=== PATIENT | female | born 1955 | race Caucasian/White ===

== ENCOUNTER 2016-12-30 05:07 | Emergency (ER) | payer OTHER | END 2016-12-30 07:24 | disposition home or self-care (01) | DX: R00.2 Palpitations (principal) ==

== ENCOUNTER 2017-02-11 09:46 | Outpatient (CLI) | payer OTHER | END 2017-02-11 09:47 | disposition home or self-care (01) | DX: R07.89 Other chest pain (principal); R00.2 Palpitations ==

== ENCOUNTER 2018-05-05 07:55 | Outpatient (CLI) | payer OTHER ==
--- NOTE | 2018-05-05 12:03 | MRI Report ---
Procedure Date: 05/05/2018 Accession Number: [id number] / [id number] Procedure: MRI - Elbow RT W/O CPT Code: FULL RESULT: EXAM: RIGHT ELBOW MRI WITHOUT CONTRAST EXAM DATE: 05/05/2018 09:04 AM. CLINICAL HISTORY: Medial epicondylitis. COMPARISON: None. TECHNIQUE: Multiplanar, multisequence T1-weighted and fluid-sensitive sequences of the elbow without contrast. Other: None. FINDINGS: Bones and articular surfaces: No significant elbow joint effusion. Patient motion artifact. Mild areas of cartilage thinning and fissuring within the elbow joint. No loose body identified. No evidence of acute fracture or stress reaction. Musculotendinous structures: Prominent bone and soft tissue edema associated with the common flexor pronator origin. 10 x 4 x 7 mm focus of fluid signal within the substance of the common extensor origin consistent with partial tear. The biceps, brachialis and triceps insertions appear intact. Ligaments: The ulnar collateral, radial collateral and lateral ulnar collateral ligaments appear intact. IMPRESSION: 1. Moderate to severe tendinosis and possible strain at the common flexor pronator origin with pronounced reactive marrow edema at the medial epicondyle. 2. High-grade partial tear at the common extensor origin. [facility] MUSCULOSKELETAL RADIOLOGY SECTION
== END 2018-05-05 07:56 | disposition home or self-care (01) ==
LOC: DI 07:55
PROVIDERS: ATTEND Orthopaedic Surgery
DX: M67.921 Unspecified disorder of synovium and tendon, right upper arm (principal); S56.212A Strain of other flexor muscle, fascia and tendon at forearm level, left arm, initial encounter

== ENCOUNTER 2021-01-28 09:50 | Outpatient (CLI) | payer MEDICARE, OTHER ==
--- NOTE | 2021-01-28 15:18 | DEXA Report ---
PROCEDURE: Dexa Spine and/or Hip INDICATIONS: OSTEOPENIA TECHNIQUE: Dual energy x-ray absorptiometry (DXA) was performed on a [employer] System. Regions measur ed are the AP Spine, femoral neck, and if needed forearm. COMPARISON: None. FINDINGS: Lumbar Spine: Bone Mineral Density 0.942 g/cm/cm,T score -2.0, osteopenia Left Hip: Bone Mineral Density 0.877 g/cm/cm,T score -1.0, normal Left Femoral Neck: Bone Mineral Density 0.769 g/cm/cm, T score 1.9, osteopenia (T score greater or equal to -1.0: NORMAL) (T score from -1.1 to -2.4: OSTEOPENIA) (T score less than or equal to -2.5 to: OSTEOPOROSIS) Impression: 1. Osteopenia elevates the patient's 10 year fracture risk. Patients with diagnosis of osteoporosis or osteopenia should have regular bone mineral density assess ment. For those eligible for Medicare, routine testing is allowed once every 2 years. Testing frequ ency can be increased for patients who have rapidly progressing disease or for those who are receivin g medical therapy to restore bone mass. Reviewed by: Prema Adkins MD on 01/28/2021 2:17 PM [facility] Approved by: Prema Adkins MD on 01/28/2021 2:17 PM [facility] Station ID: [id number]
== END 2021-01-28 09:51 | disposition home or self-care (01) ==
LOC: DI 09:50
PROVIDERS: ATTEND Internal Medicine
DX: M85.89 Other specified disorders of bone density and structure, multiple sites (principal)

== ENCOUNTER 2021-02-04 08:19 | Outpatient (CLI) | payer MEDICARE, OTHER ==
--- NOTE | 2021-02-05 13:22 | Mammography Report ---
BILATERAL DIGITAL SCREENING MAMMOGRAM 3D/2D: 02/04/2021 CLINICAL: Routine screening. Comparison is made to exams dated: 01/13/2019 mammogram and 08/16/2014 mammogram - [facility]. The tissue of both breasts is heterogeneously dense. This may lower the sensitivity of mamm ography. No significant masses, calcifications, or other findings are seen in either breast. There has been no significant interval change. IMPRESSION: NEGATIVE There is no mammographic evidence of malignancy. A 1 year screening mammogram is recommended. This exam was interpreted at Station ID: [id number]. NOTE: For mammograms, a report in lay terms will be sent to the patient. Approximately 15% of breast malignancies will not be visualized mammographically. In the management of a palpable breast mass, a negative mammogram must not discourage biopsy of a clinically suspicious lesion. Electronically Signed By: Froilan White M.D. ar/penrad:02/04/2021 09:34:00 ACR BI-RADS Category 1: Negative [id number] PARENCHYMAL PATTERN: (D) - The breast(s) demonstrate(s) heterogeneously dense fibroglandular anne-marie coy. BI-RADS CATEGORY: (1) - 1 RECOMMENDATION: (ANNUAL) - Recommend routine annual screening mammography. [id number] 1 year screening LATERALITY: (B)
== END 2021-02-04 08:20 | disposition home or self-care (01) ==
LOC: DI.N 08:19
PROVIDERS: ATTEND Internal Medicine
DX: Z12.31 Encounter for screening mammogram for malignant neoplasm of breast (principal)

== ENCOUNTER 2022-03-11 07:25 | Day surgery (SDC) | payer MEDICARE, OTHER ==
[2022-03-11] MEDS ORDERED: LACTATED RINGERS 1,000 ML IV ONE (07:56)
--- NOTE | 2022-03-11 08:26 | ANESTHESIA ---
Pre-Anesthesia VS, & Labs - Diagnosis positive cologuard - Procedure colonoscopy Vital Signs: Temp Pulse Resp BP Pulse Ox 36.0 C L 70 16 140/84 H 100 03/11/22 07:57 03/11/22 07:57 03/11/22 07:57 03/11/22 07:57 03/11/22 07:57 Height: 5 ft 3 in Weight (kg): 55.5 kg Body Mass Index: 21.7 BMI Classification: Healthy weight - NPO Other (last prep 5:15) - Is Patient ?: No Home Medications and Allergies Celecoxib [CeleBREX] 100 mg PO .FREQ PRN 12/30/16 Allergies/Adverse Reactions: Allergies Allergy/AdvReac Type Severity Reaction Status Date / Time hydromorphone [From Dilaudid] AdvReac Nausea Verified 03/11/22 08:15 Anes History & Medical History - Anesthetic History Anesthesia Complications: reports: No previous complications - Medical History Cardiovascular: reports: Other Pulmonary: reports: Asthma Musculoskeletal: reports: Osteopenia, Chronic back pain, Other Skin: reports: Eczema Smoking Status: Never smoker History of Cancer?: No - Surgical History Gynecologic: reports: section Orthopedic: reports: Other (boone's neuroma) Exam General: Alert Dental: WNL Mouth Opening: Greater than 4 Fingerbreadths Neck Mobility: Limited Mallampati classification: II Thyromental Distance: greater than 6 cm Respiratory: Lungs clear Cardiovascular: Regular rate Plan Anesthesia Type: Total IV Consent for Procedure(s) Verified and Reviewed: Yes Code Status: Attempt Resuscitation ASA classification: 2-Mild systemic disease Is this case an emergency?: No
[2022-03-11] MEDS ORDERED: PROPOFOL 500 MG/50 ML 500 MG/50 ML VIAL ONE (09:09)
[2022-03-11] MEDS ORDERED: LACTATED RINGERS 400 ML IV ONE (09:19)
[2022-03-11 09:34] VITALS: BP 122/78
--- NOTE | 2022-03-11 10:16 | ANESTHESIA POST OP EVALUATION ---
Anesthesia Post Eval - Post Anesthesia Eval Vitals: Last Vital Signs Temp 36.0 C L 03/11/22 09:32 Pulse 63 03/11/22 09:32 Resp 16 03/11/22 09:32 BP 122/78 03/11/22 09:32 Pulse Ox 100 03/11/22 09:32 CV Function Including HR & BP: Stable Pain Control: Satisfactory Nausea & Vomiting: Negative Mental Status: Baseline Respiratory Status: Airway Patent Hydration Status: Satisfactory Anesthesia Complications: None
== END 2022-03-11 07:26 | disposition home or self-care (01) ==
LOC: SDS 07:25
PROVIDERS: ATTEND Surgery
PROC: 0DBN8ZZ Excision of Sigmoid Colon, Via Natural or Artificial Opening Endoscopic (ICD-10-PCS; 2022-03-11)
PROC: 0DBP8ZZ Excision of Rectum, Via Natural or Artificial Opening Endoscopic (ICD-10-PCS; principal; 2022-03-11 08:30)
DX: R19.5 Other fecal abnormalities (principal); D12.5 Benign neoplasm of sigmoid colon; K62.1 Rectal polyp; K57.30 Diverticulosis of large intestine without perforation or abscess without bleeding; K64.8 Other hemorrhoids; J45.909 Unspecified asthma, uncomplicated
CPT/HCPCS: 45380; J7120

== ENCOUNTER 2022-09-25 08:00 | Outpatient (CLI) | payer MEDICARE, OTHER ==
[2022-09-25 17:16] LABS: RHEUMATOID FACTOR NEGATIVE (Negative)
[2022-09-26 19:07] LABS: SJOGREN'S ANTI-SS-A <0.2 AI (0.0-0.9); SJOGREN'S ANTI-SS-B <0.2 AI (0.0-0.9)
[2022-09-28 21:07] LABS: CYCLIC CITRULLINATED PEP IGG/A 2 units (0-19)
== END 2022-09-25 23:59 | disposition home or self-care (01) ==
LOC: LAB.R 08:00
PROVIDERS: ATTEND Internal Medicine
DX: M25.50 Pain in unspecified joint (principal); H04.123 Dry eye syndrome of bilateral lacrimal glands; K11.7 Disturbances of salivary secretion; M25.552 Pain in left hip
CPT/HCPCS: 81599; 83695; 84550; 86200; 86235; 86430

== ENCOUNTER 2022-09-25 10:48 | Outpatient (CLI) | payer MEDICARE, OTHER ==
--- NOTE | 2022-09-25 17:36 | XRAY Report ---
PROCEDURE: Hip w/Pelvis 2-3V LT INDICATIONS: LEFT HIP PAIN TECHNIQUE: AP pelvis with lateral view(s) of the left hip(s). COMPARISON: None. FINDINGS: Bones: No fractures or dislocations. Symmetric appearing mild bilateral hip joint osteophytic change s are seen. No evidence of avascular necrosis of femoral head. Pelvic ring appears intact. No suspi cious bony lesions. Soft tissues: The visualized bowel gas pattern is normal. No suspicious soft tissue calcifications. IMPRESSION: Symmetric appearing mild bilateral hip joint osteoarthritis. No hip fracture or dislocati on. No evidence of avascular necrosis. Reviewed by: Ryan Sweet MD on 09/25/2022 5:35 PM PST Approved by: Ryan Sweet MD on 09/25/2022 5:35 PM PST Station ID: [id number]
== END 2022-09-25 10:49 | disposition home or self-care (01) ==
LOC: DI 10:48
PROVIDERS: ATTEND Internal Medicine
DX: M16.0 Bilateral primary osteoarthritis of hip (principal)

== ENCOUNTER 2023-02-11 07:27 | Outpatient (CLI) | payer MEDICARE, OTHER ==
--- NOTE | 2023-02-11 14:40 | Ultrasound Report ---
PROCEDURE: Abdomen Limited INDICATIONS: ELEVATED LIVER ENZYMES TECHNIQUE: Real-time focused scanning was performed of the abdomen, with image documentation. COMPARISONS: None. FINDINGS: Liver: Liver is normal in size and increased in echotexture. Gallbladder: No stones. Wall thickness measures 1.3 mm. Biliary ducts: Intrahepatic bile ducts are non-dilated. Extrahepatic bile duct caliber measures 3.1 mm. Normal is 6-7 mm or less in diameter, or 10 mm or less post-cholecystectomy. Pancreas: Visualized portions of the pancreas are sonographically normal. Right kidney: Normal in size and echotexture. Right kidney measures 11.5 cm long. No hydronephrosis or nephrolithiasis. No solid masses. No complex renal cystic lesions which require follow-up. Aorta: Visualized aorta is normal in caliber at less than 3 cm. IVC: Intrahepatic inferior vena cava is patent. Miscellaneous: No free abdominal fluid. IMPRESSION: Hepatic steatosis. Reviewed by: Magali Feliciano MD on 02/11/2023 2:38 PM PDT Approved by: Magali Feliciano MD on 02/11/2023 2:38 PM PDT Station ID: [id number]
== END 2023-02-11 07:28 | disposition home or self-care (01) ==
LOC: DI 07:27
PROVIDERS: ATTEND Internal Medicine
DX: K76.0 Fatty (change of) liver, not elsewhere classified (principal)

== ENCOUNTER 2023-07-08 17:09 | Emergency (ER) | payer MEDICARE, OTHER ==
[2023-07-08 17:29] LABS: BILIRUBIN,URINE NEGATIVE (NEGATIVE); GLUCOSE, URINE (UA) NEGATIVE (NEGATIVE); KETONES,URINE (UA) NEGATIVE (NEGATIVE); LEUKOCYTE ESTERASE, URINE NEGATIVE (NEGATIVE); NITRITE,URINE NEGATIVE (NEGATIVE); OCCULT BLOOD,URINE NEGATIVE (NEGATIVE); PROTEIN,URINE NEGATIVE (NEGATIVE); UROBILINOGEN,URINE 0.2 (NORMAL) E.U./dL (NORMAL)
[2023-07-08 17:51] LABS: CLARITY,URINE CLEAR (CLEAR)
[2023-07-08 17:54] LABS: BASOPHILS % (AUTO) 0.4 %; EOSINOPHILS % (AUTO) 0.4 %; HCT - HEMATOCRIT 37.7 % (37.0-47.0); LYMPHOCYTES # (AUTO) 1.8 10^3/uL (1.5-3.5); LYMPHOCYTES % (AUTO) 18.6 %; MEAN CORPUSCULAR HEMOGLOBIN 33.1 pg (27.0-31.0); MEAN CORPUSCULAR HGB CONC 34.5 g/dL (32.0-36.0); MEAN CORPUSCULAR VOLUME 95.9 fL (81.0-99.0); MEAN PLATELET VOLUME 11.7 fL (7.9-10.8); MONOCYTES # (AUTO) 0.9 10^3/uL (0.0-1.0); MONOCYTES % (AUTO) 8.7 %; NEUTROPHILS % (AUTO) 71.6 %; PLT - PLATELET COUNT 147 10^3/uL (130-450); RED BLOOD COUNT 3.93 10^6/uL (4.20-5.40); RED CELL DISTRIBUTION WIDTH 11.5 % (12.0-15.0); WHITE BLOOD COUNT 9.8 x10^3/uL (4.8-10.8)
--- OUTSIDE RECORDS SUMMARY | 2023-07-08 18:05 | EXTERNAL MEDICAL SUMMARY RPT | Continuity of Care Document ---
Author Name Unknown Address [address] [place] [address] Phone Organization [facility] Address [address] [phone] Phone Problems date description facility 2023-05-31 10:06 Other abnormal and i nconclusive findings on diagnostic [facility] Results/Labs test date facility value unit notes
[2023-07-08 18:08] LABS: ALBUMIN 4.5 g/dL (3.2-5.5); ALBUMIN/GLOBULIN RATIO 1.8 (1.0-2.2); BILIRUBIN,TOTAL 0.7 mg/dL (0.2-1.0); CALCIUM 9.7 mg/dL (8.5-10.3); CREATININE 0.7 mg/dL (0.6-1.3); POTASSIUM 3.8 mmol/L (3.5-4.5)
--- NOTE | 2023-07-08 18:20 | ED Physician Documentation ---
PD HPI ABD PAIN - Stated complaint Stated Complaint: LLQ PX - Chief complaint Chief Complaint: Abd Pain - History obtained from History obtained from: Patient - Additional information Additional information: 68-year-old woman with history of recurrent diverticulitis has had pain in the left lower quadrant since Wednesday. She started Augmentin that day with a clear liquid diet got worse yesterday after advancing her diet. There is no fevers or chills. She is having some rectal spasms with it. Her is a surgeon and examined her and felt like she had a mass in the left lower quadrant. PD PAST MEDICAL HISTORY - Past Medical History Past Medical History: Yes Cardiovascular: Other Respiratory: Asthma Neuro: Migraines Endocrine/Autoimmune: None GI: Diverticulitis WORKERS COMPENSATION ADMINISTRATOR: None : None HEENT: Other Psych: None Musculoskeletal: Osteopenia, Chronic back pain, Other Derm: Eczema - Past Surgical History Past Surgical History: Yes Ortho: Other /WORKERS COMPENSATION ADMINISTRATOR: section - Present Medications Home Medications: Ambulatory Orders Medication Instructions Recorded Confirmed Albuterol Sulf [Ventolin Hfa 1 - 2 puffs INH Q4HR PRN 07/08/23 07/08/23 Inhaler] Amox/Clav 875/125 [Augmentin 1 tablet PO Q12H 07/08/23 07/08/23 875/125 Tab] Ciprofloxacin HCl [Cipro] 500 mg PO BID #20 tablet 07/08/23 metroNIDAZOLE [Flagyl] 500 mg PO TID 7 Days #30 tablet 07/08/23 - Allergies Allergies/Adverse Reactions: Allergies Allergy/AdvReac Type Severity Reaction Status Date / Time hydromorphone [From Dilaudid] AdvReac Nausea Verified 07/08/23 17:20 - Social History Does the pt smoke?: No Smoking Status: Never smoker Does the pt drink ETOH?: Yes Does the pt have substance abuse?: No - Immunizations Immunizations are current?: Yes - POLST Patient has POLST: No PD ED PE NORMAL - Vitals Vital signs reviewed: Yes - General General: Alert and oriented X 3, No acute distress - Cardiac Cardiac: RRR, No murmur - Respiratory Respiratory: No respiratory distress, Clear bilaterally - Abdomen Abdomen: Soft, Other (Tender in the left lower quadrant with firmness, no clear mass I would say. She does have hyperactive bowel sounds.) - Neuro Neuro: Alert and oriented X 3, Normal speech Results - Vitals Vitals: Vital Signs - 24 hr 07/08/23 07/08/23 07/08/23 17:20 18:15 19:10 Temperature 37.1 C 36.5 C Heart Rate 79 79 66 Respiratory 16 16 16 Rate Blood Pressure 140/76 H 133/77 H 124/67 O2 Saturation 100 100 100 Oxygen O2 Source Room air - Labs Labs: Laboratory Tests 07/08/23 07/08/23 07/08/23 17:18 17:47 17:47 WBC 9.8 RBC 3.93 L Hgb 13.0 Hct 37.7 MCV 95.9 MCH 33.1 H MCHC 34.5 RDW 11.5 L Plt Count 147 MPV 11.7 H Neut # (Auto) 7.0 H Lymph # (Auto) 1.8 [place] # (Auto) 0.9 Eos # (Auto) 0.0 Baso # (Auto) 0.0 Absolute Nucleated RBC 0.00 Nucleated RBC % 0.0 Sodium 138 Potassium 3.8 Chloride 102 Carbon Dioxide 29 Anion Gap 7.0 BUN 7 Creatinine 0.7 Estimated GFR (MDRD) 83 L Glucose 143 H Calcium 9.7 Total Bilirubin 0.7 AST 19 ALT 27 Alkaline Phosphatase 70 Total Protein 7.0 Albumin 4.5 Globulin 2.5 Albumin/Globulin Ratio 1.8 Lipase 9 L Urine Color YELLOW Urine Clarity CLEAR Urine pH 7.0 Ur Specific [place] <=1.005 Urine Protein NEGATIVE Urine Glucose (UA) NEGATIVE Urine Ketones NEGATIVE Urine Occult Blood NEGATIVE Urine Nitrite NEGATIVE Urine Bilirubin NEGATIVE Urine Urobilinogen 0.2 (NORMAL) Ur Leukocyte Esterase NEGATIVE Ur Microscopic Review NOT INDICATED Urine Culture Comments NOT INDICATED - Rads (name of study) CT a/p Relevant Findings:: Final report received, EMP independent interpretation of test PD Medical Decision Making - ED course ED course: 68-year-old woman who has a history of diverticulitis and feels like she has a flare of same but has failed dietary measures and about 5 days worth of Augmentin at home. who is a surgeon felt a mass in the left lower qu adrant and imaging was done with findings of uncomplicated diverticulitis. CBC with high normal white count with mild left shift. CMP normal/negative with mild hyperglycemia, likely reactive. Departure - Departure Disposition: 01 Home, Self Care Clinical Impression: Diverticulitis of gastrointestinal tract Condition: Good Record reviewed to determine appropriate education?: Yes Instructions: Diet Low Residue, ED Diverticulitis, ED Diet Clear Liquid Prescriptions: Ciprofloxacin HCl [Cipro] 500 mg PO BID #20 tablet metroNIDAZOLE [Flagyl] 500 mg PO TID 7 Days #30 tablet Comments: CT showing uncomplicated diverticulitis without perforation or abscess. I am switching her antibiotics to ciprofloxacin and Flagyl and sent the prescription electronically to [facility] in [place]. Clear liquid diet for the next 24 to 48 hours, after that a "low residue" diet. See the attached instructions. Return for new or worsening symptoms or if not improved over the next few days. Follow-up with your primary care physician for further evaluation and treatment. Do not drink alcohol while on Flagyl/metronidazole. Forms: PCP List
--- NOTE | 2023-07-08 20:45 | CT Report ---
PROCEDURE: ABDOMEN/PELVIS W INDICATIONS: , LLQ pain CONTRAST: Opti 320 100ml TECHNIQUE: After the administration of intravenous contrast, 5 mm thick sections acquired from the diaphragms to the symphysis. 5 mm thick coronal and sagittal reformats were acquired. For radiation dose reducti on, the following was used: automated exposure control, adjustment of mA and/or kV according to tess ent size. COMPARISON: None. FINDINGS: Image quality: Excellent. Lung bases: Unremarkable. Heart: Heart is normal in size. ABDOMEN: Liver: No mass lesion. Gallbladder: Within normal limits without calcified gallstones. Biliary ducts: No biliary ductal dilatation. Pancreas: Unremarkable. Spleen: Normal in size. Adrenal Glands: No adrenal nodules. Kidneys and Ureters: No hydronephrosis. Stomach and Bowel: Stomach and small bowel loops are normal in caliber and wall thickness. The appen karrie is normal. There is colonic diverticulosis with diverticular and segmental colonic wall thickenin g within the distal descending colon and proximal sigmoid colon as well as pericolonic fat stranding consistent with acute diverticulitis. No associated diverticular abscess or macroscopic free air. Peritoneum:There is a small amount of intraperineal free fluid in the left paracolic gutter and pelv is. No free air. Ventral Wall: No hernia. Abdominal Nodes: No retroperitoneal or mesenteric adenopathy by size criteria. Vessels: Aorta and inferior vena cava are normal in size. PELVIS: Pelvic Organs: Unremarkable. Bladder: Unremarkable. Pelvic Nodes: No enlarged lymph nodes. Miscellaneous: No inguinal hernias. Bones: Visualized osseous structures demonstrate no suspicious lesions. IMPRESSION: 1. Acute diverticulitis without evidence of diverticular abscess or macroscopic free air. Reviewed by: lAtaf Maynard MD on 07/08/2023 8:44 PM PDT Approved by: Altaf Maynard MD on 07/08/2023 8:44 PM PDT Station ID: [id number]
[2023-07-08] MEDS ORDERED: CIPROFLOXACIN 250 MG TABLET PO STA (21:00)
[2023-07-08] MEDS ORDERED: metroNIDAZOLE 250 MG TABLET PO STA (21:00)
[2023-07-08 21:19] VITALS: BP 121/74; O2SAT 99
[2023-07-09] MEDS ORDERED: IOVERSOL 320 100 ML VIAL IVP ONE (01:20)
== END 2023-07-08 21:15 | disposition home or self-care (01) ==
LOC: ED 17:09
DX: K57.92 Diverticulitis of intestine, part unspecified, without perforation or abscess without bleeding (principal); Z79.899 Other long term (current) drug therapy
CPT/HCPCS: 36415; 74177; 80053; 81003; 83690; 85025; 99284; A9270; 81001; 87086

== ENCOUNTER 2023-08-30 19:42 | Emergency (ER) | payer MEDICARE, OTHER ==
[2023-08-30] MEDS ORDERED: IPRATROPIUM/ALBUTEROL 3 ML NEB INH STA (23:06)
--- NOTE | 2023-08-30 23:17 | ED Physician Documentation ---
PD HPI DYSPNEA - Stated complaint Stated Complaint: SOA - Chief complaint Chief Complaint: Resp - History obtained from History obtained from: Patient - Additional information Additional information: HPI from patient. Patient says she has had upper respiratory infectious-type symptoms for the past 5 days; she describes increasing dyspnea with wheezing, nonproductive cough despite chest congestion. She took a home COVID test 3 days ago with result negative. She denies fever. She has a history of asthma. She has had decreasing results with her rescue (albuterol) inhaler. Review of Systems Constitutional: denies: Fever, Chills, Sweats Cardiac: reports: Reviewed and negative Respiratory: reports: Dyspnea, Cough, Wheezing. 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 PSYCHIATRIST: None : None HEENT: Other Psych: None Musculoskeletal: Osteopenia, Chronic back pain, Other Derm: Eczema - Past Surgical History Past Surgical History: Yes Ortho: Other /CHILD AND ADOLESCENT PSYCHIATRIST: section - Present Medications Home Medications: Ambulatory Orders Medication Instructions Recorded Confirmed Albuterol Sulf [Ventolin Hfa 1 - 2 puffs INH Q4HR PRN 07/08/23 07/08/23 Inhaler] Amox/Clav 875/125 [Augmentin 1 tablet PO Q12H 07/08/23 07/08/23 875/125 Tab] Ciprofloxacin HCl [Cipro] 500 mg PO BID #20 tablet 07/08/23 metroNIDAZOLE [Flagyl] 500 mg PO TID 7 Days #30 tablet 07/08/23 - Allergies Allergies/Adverse Reactions: Allergies Allergy/AdvReac Type Severity Reaction Status Date / Time hydromorphone [From Dilaudid] AdvReac Nausea Verified 08/30/23 20:09 - Social History Does the pt smoke?: No Smoking Status: Never smoker Does the pt drink ETOH?: Yes Does the pt have substance abuse?: No - Immunizations Immunizations are current?: Yes - POLST Patient has POLST: No PD ED PE NORMAL - Vitals Vital signs reviewed: Yes - General General: Alert and oriented X 3, No acute distress, Well developed/nourished - Cardiac Cardiac: RRR, No murmur - Respiratory Respiratory: No respiratory distress PD ED PE EXPANDED - Respiratory Respiratory: Wheezing (bilateral end-expiratory wheezing) Results - Vitals Vitals: Vital Signs - 24 hr 08/30/23 08/30/23 08/30/23 20:09 23:15 23:49 Temperature 36.5 C Heart Rate 87 77 83 Respiratory 16 20 18 Rate Blood Pressure 150/85 H 147/70 H O2 Saturation 99 100 Oxygen O2 Source Room air PD Medical Decision Making - ED course Complexity details: reviewed results, re-evaluated patient, considered differential, d/w patient ED course: Patient is given a DuoNeb. We discussed steroids, but she says she has a very unpleasant side effect of steroids and would prefer to have a prescription for them to be used only if she does not get better with other interventions such as nebulized treatments, inhalers. We discussed potential testing options such as chest x-ray to look for infiltrate, as well as nasal swab. Regarding the nasal swab, I did recommend that, as she would be appropriate for antiviral treatment should she be positive for influenza, COVID, or both. She is agreeable to the chest x-ray and the nasal swab. Unfortunately, after completion of the DuoNeb, I was told by the ED RN that the patient decided to leave. She apparently indicated she felt better and did not want to wait for the swab results and did not wait for the chest x-ray to be undertaken. Departure - Departure Disposition: Left Prior to Disposition Clinical Impression: Asthma Condition: Good Forms: PCP List
[2023-08-30 23:51] VITALS: BP 147/70; O2SAT 100
[2023-08-31 00:49] LABS: B. PARAPERTUSSIS- RESP PCR PAN NOT DETECTED; B. PERTUSSIS- RESP PCR PANEL NOT DETECTED; C. PNEUMONIAE- RESP PCR PANEL NOT DETECTED; CORONAVIRUS 229E-RESP PCR NOT DETECTED; CORONAVIRUS HKU1-RESP PCR NOT DETECTED; CORONAVIRUS NL63-RESP PCR NOT DETECTED; CORONAVIRUS OC43-RESP PCR NOT DETECTED; HUMAN METAPNEUMOVIRUS NOT DETECTED; INFLUENZA A H3- RESP PCR PANEL DETECTED; INFLUENZA B - RESP PCR PANEL NOT DETECTED; M. PNEUMONIAE- RESP PCR PANEL NOT DETECTED; PARAINFLUENZA VIRUS 1 NOT DETECTED; PARAINFLUENZA VIRUS 2 NOT DETECTED; PARAINFLUENZA VIRUS 3 NOT DETECTED; PARAINFLUENZA VIRUS 4 NOT DETECTED; RHINOVIRUS/ENTEROVIRUS NOT DETECTED; RSV- RESP PCR PANEL NOT DETECTED; SARS-CoV-2 -RESP PCR PANEL NOT DETECTED
== END 2023-08-30 23:58 | disposition home or self-care (01) ==
LOC: ED 19:42
DX: J45.909 Unspecified asthma, uncomplicated (principal); Z79.899 Other long term (current) drug therapy; Z20.822 Contact with and (suspected) exposure to COVID-19
CPT/HCPCS: 87633; 94640; 99283

== ENCOUNTER 2023-09-28 11:39 | Outpatient (CLI) | payer MEDICARE, OTHER ==
--- NOTE | 2023-09-28 20:34 | XRAY Report ---
PROCEDURE: Hip w/Pelvis 2-3V LT INDICATIONS: HIP PAIN TECHNIQUE: AP pelvis with lateral view(s) of the left hip(s). COMPARISON: None. FINDINGS: Bones: No fractures or dislocations. No suspicious bony lesions. Soft tissues: No suspicious soft tissue calcifications or masses. IMPRESSION: No acute bony abnormality. Reviewed by: Kaveh Rivera MD on 09/28/2023 7:[address] [facility] Approved by: Kaveh Rivera MD on 09/28/2023 7:[address] [facility] Station ID: [id number]
== END 2023-09-28 11:40 | disposition home or self-care (01) ==
LOC: DI 11:39
PROVIDERS: ATTEND Internal Medicine
DX: M25.552 Pain in left hip (principal)

== ENCOUNTER 2023-10-22 10:26 | Outpatient (CLI) | payer MEDICARE, OTHER ==
--- NOTE | 2023-10-22 12:01 | XRAY Report ---
PROCEDURE: Foot 3+V RT (Weight Bearing) INDICATIONS: RIGHT FOOT PAIN TECHNIQUE: 3 views of the foot were acquired. COMPARISON: None. FINDINGS: Bones: No fractures or dislocations. No suspicious bony lesions. Moderate to severe first MTP degen erative change. Soft tissues: No suspicious soft tissue calcifications or masses. IMPRESSION: No acute bony abnormality. Moderate to severe first MTP degenerative change. Reviewed by: Mehrdad Torres MD on 10/22/2023 12:00 PM PST Approved by: Mehrdad Torres MD on 10/22/2023 12:00 PM PST Station ID: [id number]
== END 2023-10-22 10:27 | disposition home or self-care (01) ==
LOC: DI 10:26
PROVIDERS: ATTEND Podiatrist
DX: M19.071 Primary osteoarthritis, right ankle and foot (principal)

== ENCOUNTER 2024-03-01 14:11 | Outpatient (CLI) | payer MEDICARE, OTHER ==
[2024-03-01 14:43] LABS: CREATININE 0.7 mg/dL (0.6-1.3)
[2024-03-01] MEDS: iohexoL-300 100 ML VIAL IVP ONE (16:35)
[2024-03-01] MEDS: DIATRIZOATE MEGLU/DIATRIZO SOD 30 ML BOTTLE PO ONE (16:36)
--- NOTE | 2024-03-01 17:04 | CT Report ---
PROCEDURE: Abdomen/Pelvis W INDICATIONS: DIVERTICULITIS CONTRAST: 100ml [id number] TECHNIQUE: After the administration of intravenous contrast, a CT scan of the abdomen and pelvis was performed. Images were recorded and evaluated at appropriate window settings. Reformats: coronal and sagittal. F or radiation dose reduction, the following was used: automated exposure control, adjustment of mA and /or kV according to patient size. COMPARISON: 07/08/2023 FINDINGS: Image quality: Diagnostic. Lower chest: Unremarkable. Liver: No solid mass. Mild diffuse hepatic steatosis. Gallbladder and biliary tree: No radiopaque stones or wall thickening. No biliary dilation. Spleen: No splenomegaly. Pancreas: No pancreatic ductal dilation. Adrenals: No adrenal nodule. Kidneys and ureters: No hydronephrosis. No renal cystic lesion which requires follow up. No solid mas s. Stomach, bowel and peritoneum: No bowel distension. No pathologic free fluid. Moderate diffuse divert iculosis. No CT evidence of acute diverticulitis. Normal appendix. Lymph nodes: No central or retroperitoneal adenopathy. Vessels: No infrarenal aortic aneurysm. PELVIS Reproductive organs: Incidental note made of enhancing fundal uterine fibroid. No adnexal masses.. Bladder: No abnormal wall thickening, accounting for underdistention. Pelvic lymph nodes: No pelvic adenopathy by size criteria. Bones: No aggressive osseous abnormality. Other: No significant ventral or inguinal hernia. IMPRESSION: 1. Moderate diverticulosis without CT evidence of acute diverticulitis. 2. No acute abdominal process identified. 3. Mild diffuse hepatic steatosis. Reviewed by: Mehrdad Torres MD on 03/01/2024 5:02 PM PDT Approved by: Mehrdad Torres MD on 03/01/2024 5:02 PM PDT Station ID: [id number]
== END 2024-03-01 14:12 | disposition home or self-care (01) ==
LOC: LAB 14:11
PROVIDERS: ATTEND Internal Medicine
DX: K57.92 Diverticulitis of intestine, part unspecified, without perforation or abscess without bleeding (principal); Z79.899 Other long term (current) drug therapy; K76.0 Fatty (change of) liver, not elsewhere classified
CPT/HCPCS: 36415; 82565